=== PATIENT | female | born 1980 | race Hispanic/Latino ===

== ENCOUNTER 2017-12-25 07:27 | Emergency (ER) | payer SELFPAY ==
[2017-12-25] MEDS ORDERED: HYDROCODONE/ACETAMINOPHEN 10/325 MG TAB ONE (07:50)
== END 2017-12-25 09:11 | disposition home or self-care (01) ==
LOC: EDH 07:27
DX: S82.891A Other fracture of right lower leg, initial encounter for closed fracture (principal); Z85.41 Personal history of malignant neoplasm of cervix uteri; Z72.0 Tobacco use; W18.49XA Other slipping, tripping and stumbling without falling, initial encounter; Y93.89 Activity, other specified; Y92.098 Other place in other non-institutional residence as the place of occurrence of the external cause; Y99.8 Other external cause status
CPT/HCPCS: 29125; 73590; 73610